=== PATIENT | female | born 1985 | race Caucasian/White ===

== ENCOUNTER 2021-04-05 08:16 | Emergency (ER) | payer OTHER, SELFPAY ==
[2021-04-05 08:30] VITALS: BP 141/64; PULSE 87; RESP 18; TEMP 36.4; O2SAT 100
--- NOTE | 2021-04-05 08:58 | ED.URI ---
HPI - URI/Sore Throat General Chief Complaint: Upper Respiratory Infection Stated Complaint: sore throat Time Seen by Provider: 04/05/21 08:49 Source: patient and RN notes reviewed Mode of arrival: ambulatory Limitations: no limitations History of Present Illness HPI Narrative: Patient presents today complaint of a sore throat since yesterday with posterior headache. Denies any additional symptoms to include fever, cough, congestion, or ear pain. She currently rates her pain 7/10, which increases with swallowing. She has been taking ibuprofen and salt water gargles without relief. States she was exposed to her best friend with strep throat approximately 1 week ago. MD elicited complaint: sore throat Related Data Home Medications Medication Instructions Recorded Confirmed No Home Medications 04/05/21 04/05/21 Allergies Allergy/AdvReac Type Severity Reaction Status Date / Time cefaclor Allergy Mild HIVES Verified 04/05/21 08:38 Review of Systems Review of Systems: CONSTITUTIONAL: Denies body aches, fever, chills, or sweats. EYES: Denies visual changes, redness, or discharge. ENT: Denies rhinorrhea, congestion, or otalgia.+ Sore throat CARDIOVASCULAR: Denies chest pain, palpitations, or edema. RESPIRATORY: Denies cough or dyspnea. GASTROINTESTINAL: Denies abdominal pain, nausea, vomiting, or diarrhea. GENITOURINARY: Denies dysuria or hematuria. SKIN: Denies rash, itching, or wounds. MUSCULOSKELETAL: Denies back pain, joint pain, or myalgia. NEUROLOGIC: Denies numbness, tingling, or weakness.+ Headache PSYCH: Denies depression or anxiety. [facility] Social History Social History Gender identity (if verbalized by the patient): Female Comments At time of signature, I have reviewed and agree with nursing past medical, surgical, social and family history unless otherwise noted. Please see nursing chart for further information. There is no relevant family history pertinent to the presenting complaint Exam Narrative: GENERAL: Well-appearing, well-nourished, and in no acute distress. HEAD: Normocephalic, atraumatic. EYES: EOMI. No redness or drainage. Conjunctivae normal. ENT: Mucous membranes pink and moist. Nares clear. No rhinorrhea. TMs normal bilaterally. Throat normal with small amount of postnasal drainage. Uvula midline. NECK: Normal AROM. Supple. No lymphadenopathy. CHEST: No respiratory distress. Clear to auscultation. HEART: Regular rate and rhythm. No murmur appreciated. Normal peripheral pulses. EXTREMITIES: Normal range of motion. No edema. SKIN: Warm, dry, no rash. Capillary refill normal. Normal skin turgor. NEURO: No focal deficits. Alert and oriented x3. Gait steady. PSYCH: Normal affect. No signs of depression or anxiety. Course Vital Signs Vital signs: Vital Signs Temperature 97.6 F 04/05/21 08:30 Pulse Rate 87 04/05/21 08:30 Respiratory Rate 18 04/05/21 08:30 Blood Pressure 141/64 H 04/05/21 08:30 Pulse Oximetry 100 04/05/21 08:30 Temperature 97.6 F 04/05/21 08:30 Pulse Rate 87 04/05/21 08:30 Respiratory Rate 18 04/05/21 08:30 Blood Pressure 141/64 H 04/05/21 08:30 Pulse Oximetry 100 04/05/21 08:30 Reviewed. Pt has been instructed to follow up with her PCP regarding her elevated blood pressure today. MDM - URI/Sore Throat Differential Diagnosis Differential diagnosis: Likely upper respiratory infection, otitis media, sinusitis, viral infection, pharyngitis and other (Strep throat) Lab Data Attestation: I reviewed the patient's lab results. Labs: Strep Screen Presumptive Negative *(Reference Range: Negative)* Critical Care Time Critical Care Time Critical Care Time: No Discharge Plan Discharge Clinical Impression: Pharyngitis Qualifiers: Pharyngitis/tonsillitis etiology: unspecified etiology Qualified Code(s): J02.9 - A
== END 2021-04-05 09:05 | disposition home or self-care (01) ==
PROVIDERS: Emergency Provider Nurse Practitioner; PCP Nurse Practitioner Family
DX: J02.9 Acute pharyngitis, unspecified (principal)
CPT/HCPCS: 87081; 87880; 99213; G0463

== ENCOUNTER 2021-04-07 07:01 | Emergency (ER) | payer OTHER, SELFPAY ==
[2021-04-07 07:06] VITALS: BP 141/99; PULSE 115; RESP 16; TEMP 36.2; O2SAT 100
[2021-04-07] MEDS: IPRATROPIUM BR 0.02% INH SOLN 0.5 MG/2.5 ML VIAL INHALATION (07:46)
[2021-04-07] MEDS: ALBUTEROL SULFATE NEB 2.5 MG/0.5 ML INH 5 MG INHALATION (07:46)
[2021-04-07 07:47] VITALS: PULSE 76; RESP 18
[2021-04-07 07:56] VITALS: PULSE 82; RESP 18
--- NOTE | 2021-04-07 09:40 | ED.GENADULT ---
HPI - General Adult General Chief complaint: Upper Respiratory Infection Stated complaint: bronchitis Time Seen by Provider: 04/07/21 07:06 History of Present Illness HPI narrative: Patient is a 35-year-old female who presents ER with upper respiratory symptoms. She has been having sinus congestion with sore throat and productive cough for the last 2 days. She went to an urgent care and had a negative strep swab and then a second urgent care and had a negative Covid swab. She is fully vaccinated. She has no fevers or chills or sweats. She reports she feels like she needs to cough something up but cannot. She has tried [id number] expectorants. Related Data Allergies Allergy/AdvReac Type Severity Reaction Status Date / Time cefaclor Allergy Mild HIVES Verified 04/07/21 07:09 Review of Systems Review of Systems: All systems reviewed & are unremarkable except as noted in HPI and below Constitutional: Constitutional: Denies chills, Denies fever(s) and Denies weakness ENT: Reports nasal congestion and Reports sore throat Cardiovascular: Cardiovascular: Denies chest pain, Denies rapid heart rate and Denies radiating jaw, neck or arm pain Respiratory: Respiratory: Reports chest congestion, Reports cough, Denies dyspnea and Denies wheezing Gastrointestinal: Gastrointestinal: Denies abdominal pain, Denies nausea and Denies vomiting PMFSH Past Medical History Medical History (Updated 04/07/21 @ 09:42 by Armando Novoa MD) Healthy female adult Surgical History Surgical History (Updated 04/07/21 @ 09:40 by Armando Novoa MD) No pertinent past surgical history Social History Social History Gender identity (if verbalized by the patient): Female Exam Narrative: GENERAL: Well-appearing, well-nourished, and in no acute distress. HEAD: Normocephalic, atraumatic. EYES: PERRL and EOMI. ENT: TMs normal bilaterally and ear canals free of debris. CHEST: Clear to auscultation. No respiratory distress. HEART: Tachycardic and regular. Normal peripheral pulses. EXTREMITIES: Normal range of motion. No edema. NEURO: Alert and oriented x3. PSYCH: Normal mood and affect. Course Course Emergency Course: Patient resting comfortably. No real change with nebulizer treatment. Feel patient has upper respiratory infection with mucus plugging. Discharge home. Recommend supportive therapy. Vital Signs Vital signs: Vital Signs Temperature 97.2 F L 04/07/21 07:06 Pulse Rate 115 H 04/07/21 07:06 Respiratory Rate 16 04/07/21 07:06 Blood Pressure 141/99 H 04/07/21 07:06 Pulse Oximetry 100 04/07/21 07:06 Temperature 97.2 F L 04/07/21 07:06 Pulse Rate 82 04/07/21 07:56 Respiratory Rate 18 04/07/21 07:56 Blood Pressure 141/99 H 04/07/21 07:06 Pulse Oximetry 100 04/07/21 07:06 Medical Decision Making Vital Signs Vital Signs: Vital Signs Temperature 97.2 F L 04/07/21 07:06 Pulse Rate 115 H 04/07/21 07:06 Respiratory Rate 16 04/07/21 07:06 Blood Pressure 141/99 H 04/07/21 07:06 Pulse Oximetry 100 04/07/21 07:06 Temperature 97.2 F L 04/07/21 07:06 Pulse Rate 82 04/07/21 07:56 Respiratory Rate 18 04/07/21 07:56 Blood Pressure 141/99 H 04/07/21 07:06 Pulse Oximetry 100 04/07/21 07:06 Discharge Plan Discharge Clinical Impression: Upper respiratory infection Patient Disposition: Home, Self-Care Condition: Stable Instructions: Upper Respiratory Infection (ED) Additional Instructions: Return to the ER if you cannot breathe, you cannot keep down food or water, you have chest pain or shortness of breath, you have additional concerns. Prescriptions: New dextromethorphan-guaifenesin [Mucinex DM] 60-1,200 mg tablet extended release 12 hr 1 tablet PO Q12H Qty: 10 RF: 0 fluticasone propionate [Flonase Allergy Relief] 50 mcg/actuation spray,suspension 1 spray intranasal DAILY
[2021-04-07 09:59] VITALS: PULSE 82; O2SAT 100
== END 2021-04-07 10:00 | disposition home or self-care (01) ==
PROVIDERS: Emergency Provider Emergency Medicine; PCP Nurse Practitioner Family
DX: J06.9 Acute upper respiratory infection, unspecified (principal)
CPT/HCPCS: 94640; 99283

== ENCOUNTER 2024-11-01 13:58 | Outpatient (RCR) | payer OTHER, SELFPAY ==
[2024-11-01 14:07] VITALS: BMI 54.6
== END 2025-01-30 09:20 | disposition home or self-care (01) ==
LOC: ANHDMC 13:58
PROVIDERS: PCP Family Medicine; Visit Provider Family Medicine
DX: Z68.43 Body mass index [BMI] 50.0-59.9, adult (principal); Z71.3 Dietary counseling and surveillance; I10 Essential (primary) hypertension
CPT/HCPCS: 97802

== ENCOUNTER → 2025-05-15 14:40 | Outpatient (CLI) | payer OTHER, SELFPAY ==
--- NOTE | ~2025-05-15 | XR_ITS ---
EXAMINATION: XR foot RT min 3V, 05/15/2025 14:45 CDT HISTORY: M79.671 - Pain in right foot COMPARISON: No comparisons available. Findings: No acute fracture or malalignment. No significant degenerative changes. Soft tissues unremarkable. Impression: No acute fracture or malalignment. Reviewed, dictated and finalized at location A. Impression: No acute fracture or malalignment.
== END ==
LOC: EXPCRAD 14:41
PROVIDERS: PCP Family Medicine; Visit Provider Family Medicine
DX: M79.671 Pain in right foot (principal)
CPT/HCPCS: 73630